=== PATIENT | male | born 1965 | race Caucasian/White ===

== ENCOUNTER → 2018-08-08 | Outpatient (CLI) | payer BC, OTHER ==
[~2018-08-08] VITALS: Ht 170.2 cm; Wt 68.0 kg
[~2018-08-08] MED LIST: CRESTOR5 MG PO; FINASTERIDE1 MG PO
--- NOTE | ~2018-08-08 | HPC ---
[facility] [address] [place] [address] PAIN MANAGEMENT CONSULTATION Name: ADDISON BERGMAN Room #: REG [facility].#: [id number] Admission: 08/08/18 Attend Phys: Ja Burgos DO Discharge: Date of : 61 Report #: [id number] THIS REPORT FOR: //name// CC: Kishan Burgos DATE OF SERVICE: 08/08/2018 REFERRING PHYSICIAN: Kishan Velasquez MD CHIEF COMPLAINT: Low back pain, left lower extremity pain and paresthesias. 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 The patient states his pain has progressively worsened. He sought evaluation years back with another pain physician to address L4-L5 findings that showed paracentral disk bulge on the left. He did very well with previous epidural injections. He has been referred to our clinic to discuss options for treatment for this continued low back pain, left lower extremity symptoms. The patient denies new injury, new trauma. He reports that he participates in daily workouts and has been healthy otherwise. He indicates that no injury or trauma have led to progression of pain. He states over the past week-week and a half, his pain had intensified to the point where he sought further evaluation. The patient indicates pain today is periodic and intermittent in nature, describes the pain as burning, aching, numbness and tingling. Places current pain score 1-2/10, daily average at 1-3/10, worst pain has been is 5-6/10. The patient states that lifting, bending, moving in certain directions exacerbate symptoms, placing a pillow under his back for support while sleeping tends to improve pain. He has been referred to our service to discuss options for treatment for suspected lumbar radiculopathy. PAST MEDICAL HISTORY: 1. Dyslipidemia. 2. Benign prostatic hypertrophy. SOCIAL HISTORY: The patient denies tobacco, denies IV or illicit drug use. Admits to occasional alcohol beverage. 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 He is unaccompanied at today's visit. REVIEW OF SYSTEMS: Positive only for low back pain, left lower extremity pain and paresthesias. All other review of systems negative per 12-point review of systems other than those listed in history of present illness. [facility] [address] [place] [address] PAIN MANAGEMENT CONSULTATION Name: ADDISON BERGMAN [id number] Admission: 08/08/18 Attend Phys: Ja Burgos DO Discharge: Date of : 61 Report #: [id number] PAST SURGICAL HISTORY: Appendectomy in 1972. Pain impact score 7/70 indicating mild interference of daily activities secondary to pain. ALLERGIES: SULFA. CURRENT MEDICATIONS: Finasteride 1 mg once a day, rosuvastatin 5 mg per day. IMAGING: MRI of the lumbar spine obtained 09/07/2013 shows L1-L2, L2-L3, L3-L4 unremarkable. L4-L5 shows moderate degenerative changes, diffuse disk intensity loss, posterior bulge, superimposed central disk protrusion, no significant central canal stenosis. There is moderate left and mild right facet arthropathy and spurring, ligamentum flavum hypertrophy. There is a subarticular left paramedian narrowing due to disk bulge protrusion and facet arthropathy. L5-S1 mild arthritic changes. PHYSICAL EXAMINATION: VITAL SIGNS: Blood pressure 130/73, pulse 68, respiratory rate 16 and unlabored, the patient is 97% on room air. Height 5 feet 7 inches tall, weight 150 pounds, BMI calculated 23.5. GENERAL: Well-developed, well-nourished, well-hydrated, 53-year-old male. He appears his stated age, placing current pain score 4/10. HEENT: Normocephalic, atraumatic. Pupils equal, round, reactive to light. Extraocular muscles are intact. Sclerae nonicteric without injection. NEUROLOGIC: Cranial nerves 2-12 grossly intact. Speech fluent. The patient deemed a good historian. EXTREMITIES: Show no clubbing, no cyanosis, no edema. MUSCULOSKELETAL: Lower extremity strength appears symmetrical 5/5. Muscle bulk and tone equal and symmetrical in lower extremities. Seated straight leg raising negative. Supine straight leg raising mildly positive left. Toñito's test negative. Gait appears mildly antalgic favoring left lower extremity over right. He remains intact to light touch from L1 through S2 dermatomes. Ankle clonus negative. Babinski is negative. ASSESSMENT: 1. Lumbar radiculopathy. 2. Displacement of lumbar intervertebral disk with radiculopathy. 3. Lumbosacral spondylosis with radiculopathy. 4. Facet arthropathy of the lumbar spine. 5. Neural foraminal stenosis of lumbar spine. 6. Lumbar degeneration. 7. Chronic intractable pain. PLAN: [facility] [address] [place] [address] PAIN MANAGEMENT CONSULTATION Name: ADDISON BERGMAN Room #: REG [facility] Escalera#: [id number] Admission: 08/08/18 Attend Phys: Ja Burgos DO Discharge: Date of : 61 Report #: [id number] 1. Based on today's physical exam, the history the patient provides, the description the patient uses in regards to pain as well as the distribution of symptoms and provocative factors along with the MRI from 2012, likely source of the patient's pain is the disk changes at the L4-L5 level causing a lumbar radiculopathy secondary to neural foraminal stenosis. The patient and I discussed at length today the treatment options for lumbar radiculopathy secondary to the findings of the previous MRI and the physical exam today. We discussed physical therapy, stretching exercise, core strengthening as a treatment option, though the patient is participating in daily exercise routine. Changes could be made to address ongoing pain issues. We discussed medication management adding neuropathic pain medications and a consistent nonsteroidal anti-inflammatory. We discussed lumbar epidural injections under fluoroscopic guidance, spinal cord stimulator therapy and surgical options. After reviewing risks and benefits of all the proposed treatment options, the patient chose to begin with a lumbar epidural injection. The patient was advised risks and benefits of a lumbar epidural injection. These risks include but are not necessarily limited to bleeding, bruising, infection, worsening pain, no relief of pain, also risk of temporary or permanent muscle weakness, temporary or permanent nerve damage, possible paralysis and . The patient states understood and wished to proceed. 2. The patient will return to our clinic in 31 days. At that time, we will review the efficacy of today's epidural injection and determine if next in the series of epidural injections would be warranted. 3. No medication changes made at today's visit. The patient to continue current medical therapy as previously prescribed. 4. We wish to thank the referring physician for the opportunity to see the patient in consultation. We will keep you apprised of his response to treatment for his lumbar radicular symptoms. Again, we wish to thank you for the opportunity to see the patient in consultation. PROCEDURE NOTE DESCRIPTION OF PROCEDURE: Lumbar epidural steroid injection under fluoroscopic guidance. This is the first procedure of the first series that the patient is undergoing. After obtaining written consent, the patient was taken back to the fluoroscopy suite, placed in a prone position with pillow under the abdomen to decrease lumbar lordosis. The skin overlying the lumbosacral area was then prepped and draped in aseptic fashion. The lumbar vertebral interspace was then identified by AP fluoroscopy. The skin and subcutaneous tissue overlying the target site of injection was anesthetized with 3 mL 1% lidocaine. [address] [address] PAIN MANAGEMENT CONSULTATION Name: ADDISON BERGMAN Room #: REG [facility] Fernandes#: [id number] Admission: 08/08/18 Attend Phys: Ja Burgos DO Discharge: Date of : 61 Report #: [id number] A 20-gauge 3-1/2 inch Tuohy needle was then advanced under fluoroscopic guidance towards the epidural space using a left paramedian approach. The epidural space was identified using loss of resistance to air technique. After negative aspiration for heme or cerebrospinal fluid, a total of 0.6 mL of Omnipaque was injected. A lumbar epidurogram was confirmed using both AP and lateral fluoroscopy. After negative aspiration for heme or cerebrospinal fluid, 2 mL, 40 mg per mL, 80 mg total triamcinolone, 3 mL lidocaine 1% was injected in increments. Contrast spread was noted from posterior epidural space. The needle was then retracted approximately half way and needle tract flushed with 1 mL of 1% lidocaine. Needle was then removed. There were no apparent sensory or motor deficits in the lower extremity following the procedure. A sterile bandage was placed over the injection site. The heart rate, pulse, oximetry and blood pressure were continuously monitored after the procedure. There were no apparent complications. The patient tolerated the procedure well and was carefully escorted to the recovery room in stable condition. There were no apparent complications. After meeting discharge criteria, the patient was then discharged home. <ELECTRONICALLY SIGNED> By: Ja Burgos DO 08/11/18 [id number] Ja Burgos DO /nt
[2018-08-08 15:06] VITALS: BP 130/73
== END | disposition home or self-care (01) ==
LOC: PAIN 06:56
DX: M51.16 Intervertebral disc disorders with radiculopathy, lumbar region (principal); M47.27 Other spondylosis with radiculopathy, lumbosacral region; M46.96 Unspecified inflammatory spondylopathy, lumbar region; M48.061 Spinal stenosis, lumbar region without neurogenic claudication; G89.29 Other chronic pain; E78.5 Hyperlipidemia, unspecified; N40.0 Benign prostatic hyperplasia without lower urinary tract symptoms; Z88.2 Allergy status to sulfonamides; Z79.899 Other long term (current) drug therapy; Z90.49 Acquired absence of other specified parts of digestive tract; Z98.890 Other specified postprocedural states

== ENCOUNTER → 2019-05-24 | Outpatient (CLI) | payer BC, OTHER | LOC: RAD 16:46 | DX: N20.0 Calculus of kidney (principal) ==

== ENCOUNTER → 2019-07-05 | Outpatient (CLI) | payer BC, OTHER | LOC: RAD 11:37 | DX: N20.0 Calculus of kidney (principal); N42.89 Other specified disorders of prostate; K56.41 Fecal impaction ==

== ENCOUNTER → 2020-10-31 | Outpatient (CLI) | payer OTHER | LOC: CAT 13:25 | PROVIDERS: ATTEND Internal Medicine Cardiovascular Disease | DX: Z13.6 Encounter for screening for cardiovascular disorders (principal); I25.10 Atherosclerotic heart disease of native coronary artery without angina pectoris; E78.00 Pure hypercholesterolemia, unspecified ==

== ENCOUNTER → 2020-12-05 | Outpatient (CLI) | payer BC, OTHER | LOC: SJCVCIMAG 10:02 | PROVIDERS: ATTEND Internal Medicine Cardiovascular Disease | DX: I08.8 Other rheumatic multiple valve diseases (principal); R53.83 Other fatigue; Z82.49 Family history of ischemic heart disease and other diseases of the circulatory system ==

== ENCOUNTER → 2021-04-14 | Outpatient (CLI) | payer BC, OTHER | LOC: RAD 11:57 | PROVIDERS: ATTEND Specialist | DX: M89.8X6 Other specified disorders of bone, lower leg (principal) ==